=== PATIENT | male | born 2000 | race Caucasian/White ===

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

== ENCOUNTER 2021-01-04 08:53 | Emergency (ER) | payer MEDICAID ==
[~2021-01-04] VITALS: Ht 185.4 cm; Wt 74.8 kg
[~2021-01-04 08:53] MED LIST: IBUP-1955 PO
[2021-01-04 08:59] VITALS: BP 121/81
--- NOTE | 2021-01-04 09:03 | NUR ---
THE PATIENT IS BIB MOTHER FOR C/O L ANKLE PAIN S/P ROLLING ANKLE PLAYING BASKETBALL. RATES PAIN 5/10. NO APPARENT DEFORMITY NOTED. WILL CONTINUE TO MONITOR THE PATIENT.
--- NOTE | 2021-01-04 10:53 | NUR ---
AIR SPLINT APPLIED TO L ANKLE
== END 2021-01-04 10:54 | disposition home or self-care (01) ==
LOC: ER 08:57
DX: S93.492A Sprain of other ligament of left ankle, initial encounter (principal); Z79.899 Other long term (current) drug therapy; X58.XXXA Exposure to other specified factors, initial encounter; Y93.67 Activity, basketball; Y92.89 Other specified places as the place of occurrence of the external cause; Y99.8 Other external cause status
CPT/HCPCS: 73610-TC

== ENCOUNTER 2022-06-15 10:56 | Emergency (ER) | payer MEDICAID ==
[~2022-06-15] VITALS: Ht 182.9 cm; Wt 74.8 kg
[2022-06-15 11:12] VITALS: BP 123/69
--- NOTE | 2022-06-15 12:04 | NUR ---
PT SEEN BY MD AT BEDSIDE FOR EVAL
--- NOTE | 2022-06-15 13:50 | NUR ---
at bedside for ear irrigation
[2022-06-15] MEDS ORDERED: CARB15DR12 RIGHT EAR (14:02)
--- NOTE | 2022-06-15 14:29 | NUR ---
Patient discharged to home in stable condition accompanied by mom. Written and verbal after care instructions given. Patient verbalizes understanding of instruction.
== END 2022-06-15 14:31 | disposition home or self-care (01) ==
LOC: ER 11:26
DX: H61.21 Impacted cerumen, right ear (principal); Z79.899 Other long term (current) drug therapy
CPT/HCPCS: 99282; 69209; A6403

== ENCOUNTER 2023-11-09 16:02 | Emergency (ER) | payer MEDICAID ==
[~2023-11-09] VITALS: Ht 182.9 cm; Wt 69.9 kg
[~2023-11-09 16:02] MED LIST changes: +CARB15DR12 RIGHT EAR
[2023-11-09 16:10] VITALS: BP 122/67; TEMP 98.7
[2023-11-09] MEDS ORDERED: CLIN300C12 PO (17:07)
[2023-11-09] MEDS ORDERED: CLINDAMYCIN HCL 150 MG CAPSULE ONE (17:36)
[2023-11-09 17:43] VITALS: O2SAT 100
[2023-11-09] MEDS: CLINDAMYCIN HCL 150 MG CAPSULE PO ONE (17:43)
== END 2023-11-09 17:44 | disposition home or self-care (01) ==
LOC: ER 16:02
DX: L03.113 Cellulitis of right upper limb (principal); L03.115 Cellulitis of right lower limb; Z88.8 Allergy status to other drugs, medicaments and biological substances; Z88.1 Allergy status to other antibiotic agents

== ENCOUNTER 2024-03-08 16:47 | Emergency (ER) | payer MEDICAID ==
[~2024-03-08] VITALS: Ht 182.9 cm; Wt 68.0 kg
[~2024-03-08 16:47] MED LIST changes: +CLIN300C12 PO
[2024-03-08] MEDS ORDERED: PRED50TA PO (17:09)
[2024-03-08] MEDS ORDERED: ALBU18HF2 INH (17:09)
[2024-03-08 17:26] VITALS: BP 124/87; TEMP 98.2; O2SAT 97
== END 2024-03-08 17:27 | disposition home or self-care (01) ==
LOC: ER 17:06
DX: J45.909 Unspecified asthma, uncomplicated (principal); R07.89 Other chest pain; Z88.0 Allergy status to penicillin; Z88.8 Allergy status to other drugs, medicaments and biological substances